=== PATIENT | female | born 1935 | race Caucasian/White ===

== ENCOUNTER 2016-07-16 05:31 | Day surgery (SDC) | payer OTHER ==
[2016-07-15 14:22] LABS: MANUAL DIFF NEEDED? NO
[2016-07-15 15:26] LABS: BASO% 0.4 % (0.0-0.8); EOS# 0.05 X1000 (0.0-0.7); EOS% 0.5 % (0.0-10.0); HEMATOCRIT 40.2 % (37.0-47.0); HEMOGLOBIN 13.1 g/dL (12.0-16.0); IMM GRAN# 0.03 X1000 (0.0-0.04); IMM GRAN% 0.3 % (0.0-0.5); LYMPH# 1.43 X1000 (1.2-3.4); LYMPH% 14.4 % (20.5-51.1); MCH 28.9 PG (27-31); MCHC 32.6 g/dL (33-37); MCV 88.7 FL (81-99); MONO# 1.09 X1000 (0.11-0.59); MPV 9.2 FL (7.4-10.4); NEUT% 73.4 % (42.2-75.2); PLT 334 X1000 (130-400); RBC 4.53 XMIL (4.2-5.4)
--- NOTE | 2016-07-15 21:52 | HISTORY AND PHYSICAL ---
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 We recently began seeing the patient because of recurring symptoms. In October 2015 query of her InterStim noted approximately 20% of battery life remaining. She is subsequently returned now with complaints that her InterStim is no longer working and she is wishing to proceed with replacement of the neuromodulator. The risks and benefits of this were explained at length. She understands and wishes to proceed with surgical intervention. PAST MEDICAL HISTORY: Positive for a ruptured disk in her low back and several other bulging disks, she struggles also with functional bowel disease. PAST SURGICAL HISTORY: Positive for appendectomy, tonsillectomy, submaxillary stone removal, abdominal hysterectomy, multiple exploratory laparotomies, a bilateral salpingo-oophorectomy, a prior permanent InterStim placement. ALLERGIES: Aspirin, sulfur, Demerol, Pro-Banthine, fluoroquinolones and Cinobac. CURRENT MEDICATIONS: Premarin cream, Analpram p.r.n., Lortab 5 p.r.n., levothyroxine 50 mcg, Coreg CR 20, Colace 100, trazodone 50, Singulair 10, Astelin spray, triamcinolone spray 55 mcg per activation, ranitidine b.i.d. and p.r.n. medications. SOCIAL HISTORY: Positive for tobacco but stopped in 1994. No alcohol or drugs. FAMILY HISTORY: Noncontributory. PHYSICAL EXAMINATION: GENERAL: Her BMI is currently 20. HEENT: Normocephalic, atraumatic. PERRLA. EOMI. No thyromegaly. CV: Regular rate and rhythm without murmur, gallop, or rub. PULMONARY: Clear to auscultation, percussion. ABDOMEN: Soft. : Shows atrophic changes. NEUROLOGIC: Afocal. EXTREMITIES: Without clubbing, cyanosis, or edema. ASSESSMENT AND PLAN: Patient is admitted at this time for permanent InterStim placement and possible lead replacement depending upon the impedances of these leads.
[2016-07-16] MEDS ORDERED: LR 1,000 ML ONE ×2 (05:49→09:45)
[2016-07-16] MEDS ORDERED: MARCAINE 0.25% PF/EPI 1:200,000 ONE (06:35)
[2016-07-16] MEDS ORDERED: KEFZOL 1 GM/D5W 50 ML ONE (07:22)
[2016-07-16] MEDS ORDERED: CLAVE SECONDARY SET 11953 ONE (07:22)
[2016-07-16] MEDS ORDERED: DIPRIVAN 1% ONE (07:56)
[2016-07-16] MEDS ORDERED: PHENERGAN PO PRN (08:56)
[2016-07-16] MEDS ORDERED: NORCO-5 PO PRN (08:56)
[2016-07-16] MEDS ORDERED: NORCO-10 PO PRN (08:56)
[2016-07-16 09:18] VITALS: BP 148/82
[2016-07-16] MEDS ORDERED: ZOFRAN ONE (09:45)
[2016-07-16] MEDS ORDERED: QUELICIN (DOSE) ONE (09:45)
[2016-07-16] MEDS ORDERED: XYLOCAINE-MPF 2% ONE (09:45)
--- NOTE | 2016-07-16 10:28 | OPERATIVE NOTE ---
PROCEDURE DATE: 07/16/2016 PREOPERATIVE DIAGNOSIS: End of life neurostimulator. POSTOPERATIVE DIAGNOSIS: End of life neurostimulator. PROCEDURE: Replacement of neurostimulator. SURGEON: Mango Doyle MD ANESTHESIA: General. ESTIMATED BLOOD LOSS: Less than 5 mL. HISTORY: The patient is a 80-year-old female, who we placed a neurostimulator into S3 foramen approximately 5 years ago secondary to unobstructed urinary retention. Over the last 5 years, patient has had excellent results with neurostimulator. She was seen approximately 2 months ago, with 20% battery life noted and then recently presented with the end of life battery and she wished to have it replaced. At the time of our initial evaluation 2 months ago, she had excellent impedance in all leads and today during the testing had the same thing also. OPERATIVE FINDINGS: Neurostimulator noted to be in the left buttock region. No evidence of any infection. It was easily removed. Normal impedance with normal response of the S3 nerve upon testing. OPERATIVE PROCEDURE: The patient was taken to the operating room, placed supine position. After adequate general anesthesia was obtained, she was then placed in the prone position and her buttock and low back region were prepped and draped in the usual fashion. Infiltration with 0.25% Marcaine with epinephrine was performed at our prior surgical site. Sagittal incision was made across the prior surgical incision site and we gently used hemostats and Metzenbaum scissors to dissect the pocket open. We gently lifted the battery out and disconnected the lead from the battery. A new battery was then hooked to the lead and tightened in a typical fashion. The new battery was placed in the pocket. At this time, we then did impedance checked and programming and we had excellent response at low voltages and no impedance. So decision was made to terminate the procedure. Then 0 Vicryl ligature was utilized to close the fascia in deep area of this pocket and then a 4.0 Vicryl ligature was utilized in a subcuticular fashion to reapproximate skin edges. Sponge count, instrument count, and needle counts correct x3. Packs and drains were none. Patient was awakened, taken to the recovery room with vital signs stable.
[2016-07-16] MEDS ORDERED: CATAPRES PO SCH (21:00)
[2016-07-17] MEDS ORDERED: SYNTHROID PO SCH (07:00)
[2016-07-17] MEDS ORDERED: PRILOSEC PO SCH (07:00)
[2016-07-17] MEDS ORDERED: NORVASC PO SCH (09:00)
[2016-07-17] MEDS ORDERED: PRINIVIL PO SCH (09:00)
== END 2016-07-16 09:48 | disposition home or self-care (01) ==
LOC: OR 05:31
PROVIDERS: ATTEND Obstetrics & Gynecology
DX: Z45.42 Encounter for adjustment and management of neurostimulator (principal)
CPT/HCPCS: 85025; C1767; C1787; J0330; J0690; J2405; J7120

== ENCOUNTER 2019-04-02 09:17 | Inpatient (IN) ==
[2019-04-02] MEDS ORDERED: NS 1,000 ML IV ONE (09:27)
[2019-04-02] MEDS ORDERED: MORPHINE IV ONE ×2 (09:54→12:43)
[2019-04-02] MEDS ORDERED: ZOFRAN IV ONE (09:54)
[2019-04-02 10:37] LABS: BASO# 0.02 X1000 (0.0-0.2); BASO% 0.1 % (0.0-0.8); HEMATOCRIT 41.1 % (37.0-47.0); HEMOGLOBIN 13.3 g/dL (12.0-16.0); IMM GRAN# 0.03 X1000 (0.0-0.04); IMM GRAN% 0.2 % (0.0-0.5); LYMPH# 0.53 X1000 (1.2-3.4); LYMPH% 3.9 % (20.5-51.1); MCH 28.3 PG (27-31); MCHC 32.4 g/dL (33-37); MCV 87.4 FL (81-99); MONO# 0.44 X1000 (0.11-0.59); MONO% 3.3 % (1.7-9.3); MPV 8.9 FL (7.4-10.4); NEUT% 92.5 % (42.2-75.2); PLT 397 X1000 (130-400); RDW 13.9 % (11.5-14.5); WBC 13.52 X1000 (4.8-10.8)
[2019-04-02 10:44] LABS: INR 0.99; PROTIME 13.2 Seconds (11.0-16.0); PTT 30.2 Seconds (22.3-41.8)
[2019-04-02 10:54] LABS: ALB/GLOB RATIO 1.8; ALBUMIN 4.9 g/dL (3.5-5.0); CALCIUM 10.1 mg/dL (8.8-10.2); CREATININE 1.7 mg/dL (0.5-0.9); MAGNESIUM 2.1 mg/dL (1.5-2.7); POTASSIUM 5.2 mmol/L (3.5-5.1); TOTAL BILIRUBIN 0.63 mg/dL (0.20-1.00); TOTAL PROTEIN 7.6 g/dL (6.3-8.3)
--- NOTE | 2019-04-02 11:18 | Diag Imaging Result Doc PS360 ---
FLAT/UPRIGHT ABD/1 VIEW CHEST - 04/02/2019 INDICATION: abd pain, history of obstruction TECHNIQUE: COMPARISON: 10/03/2017 FINDINGS: The chest is clear. There is a device at the right side of the pelvis with an electrode in the lower pelvis. There is a nonobstructive bowel gas pattern. No free air or abnormal calcifications. There are surgical clips in the right upper and lower quadrants. No constipation. IMPRESSION: No acute disease. Electronically signed by Javi Talbot 04/02/2019 11:16 AM
[2019-04-02 12:02] LABS: URINE SOURCE CLEAN CATCH
[2019-04-02 12:06] LABS: BILIRUBIN URINE NEGATIVE (NEGATIVE); BLOOD URINE NEGATIVE (NEGATIVE); COLOR YELLOW; GLUCOSE URINE NEGATIVE (NEGATIVE); KETONE URINE NEGATIVE (NEGATIVE); LEUKOCYTES URINE NEGATIVE (NEGATIVE); NITRITE URINE NEGATIVE (NEGATIVE); PH URINE 6.5; PROTEIN URINE TRACE mg/dL (NEGATIVE); SP GRAVITY URINE 1.019; TURBIDITY URINE CLEAR (CLEAR); UR EPITHELIAL CELLS <10 /HPF (<10); URINE BACTERIA NEGATIVE /HPF; URINE RBC <10 /HPF (<10); URINE WBC <10 /HPF (<10); UROBILINOGEN URINE NORMAL (NORMAL)
--- NOTE | 2019-04-02 12:14 | Diag Imaging Result Doc PS360 ---
CT ABDOMEN/PELVIS W/O CONTRAST - 04/02/2019 INDICATION: abd pain, SBO COMPARISON: 07/08/2018 FINDINGS: The lung bases are clear and the heart size is normal. There are cholecystectomy clips. No radiodense renal stones. No hydronephrosis or hydroureter. There is a small stable ventral hernia at the anterior right parasagittal pelvic body wall. This contains a knuckle of small bowel which was the case on the prior CT. There is severe dilation of the small bowel diffusely. There is also fluid throughout the colon but the colon is normal in caliber. There appears to have been previous right hemicolectomy. No intraperitoneal free air or free fluid. Uterus is absent. Urinary bladder and rectum are normal. There are moderate degenerative changes of the spine. No acute or suspicious bony lesion. IMPRESSION: Extensive, severe dilation of all of the small bowel. There is a small herniated loop in a ventral hernia at the right pelvic body wall, that was the case on the prior exam. However there is no distal collapsed bowel to indicate focal mechanical obstruction at this point. The reason for the severe bowel dilation is unclear. This may indicate severe ileus. This exam was performed using automated exposure control, adjustment of mA or kV according to patient size, and/or use of iterative reconstruction technique Electronically signed by Javi Talbot 04/02/2019 12:12 PM
--- NOTE | 2019-04-02 12:40 | PROVIDER DOCUMENTATION ---
This chart was entered by Altagracia Shah Scribe, acting as scribe for Chris Isabel MD. HPI-Abdominal Pain/GI Problem - General Chief Complaint: N/V/D Stated Complaint: VOMITING Time Seen by Provider: 04/02/19 09:26 Source: patient Allergies/Adverse Reactions: Patient Allergies Allergy/AdvReac Type Severity Reaction Status Date / Time aspirin Allergy Severe SWELLING Verified 10/16/18 17:48 meperidine HCl * Allergy Severe "CARDIAC Verified 10/16/18 17:48 [From Demerol] ARREST" Sulfa (Sulfonamide Allergy Severe HIVES Verified 10/16/18 17:48 Antibiotics) [Sulfa(Sulfonamide Antibiotics)] propantheline bromide * Allergy Unknown Unknown Verified 10/16/18 17:48 [From Pro-Banthine] ciprofloxacin [From Cipro] AdvReac Severe Unknown Verified 10/16/18 17:48 ciprofloxacin HCl * AdvReac Intermediate Unknown Verified 10/16/18 17:48 [From Cipro] hydrochlorothiazide AdvReac Mild NAUSEA Verified 10/16/18 17:48 Home Medications: Home Medication List Medication Instructions Recorded Confirmed Last Taken Type Desipramine HCl 10 mg PO QHS 05/21/17 10/16/18 09/29/17 History Hydrocodone/Acetaminophen [[place] 1 each PO Q4-6H PRN PRN 05/21/17 10/16/18 09/29/17 History 5-325 Tablet] Amlodipine [Norvasc] 5 mg PO DAILY 10/01/17 10/16/18 09/30/17 History Hydralazine [Apresoline] 25 mg PO BID 10/01/17 10/16/18 09/27/17 History Levothyroxine Sodium 125 mcg PO DAILY@0700 10/01/17 10/16/18 10/01/17 History Metoprolol Succinate E.r. [Toprol 25 mg PO DAILY 10/01/17 10/16/18 10/01/17 History Xl] Mirtazapine 45 mg PO DAILY 10/01/17 10/16/18 09/27/17 History Clopidogrel Bisulfate [Clopidogrel] 75 mg PO DAILY 04/12/18 10/16/18 Unknown History Nitrofurantoin Macrocrystal 50 mg PO Q12HR #10 cap 10/16/18 Unknown Rx [Macrodantin] Phenazopyridine HCl [Pyridium] 100 mg PO Q8HR #12 tab 10/16/18 Unknown Rx Nitrofurantoin Monohyd/M-Cryst 100 mg PO BID #14 cap 03/22/19 Unknown Rx [Macrobid 100 mg Capsule] Phenazopyridine [Pyridium] 100 mg PO TID #6 tab 03/22/19 Unknown Rx - History of Present Illness-ABD Nature of Presenting Problems: Patient is a 83 year old female who presents with generalized abdominal pain. States fever, nausea and vomiting with pain. Reports symptoms started this morning around 0400. History of small bowel obstructions with colon surgeries. States last bowel movement was last night. Reports was recently treated for an UTI. Abdominal Pain Onset Location: reports: generalized abdomen Pain Radiation: reports: no radiation Quality of Pain: reports: aching Severity in ED: reports: moderate Onset/Duration: reports: this morning (0400) Timing: reports: still present Activities at Onset: reports: light activity Associated Symptoms: reports: fever/chills (fever), nausea, vomiting. denies: constipation, diaphoresis Last BM: last night Bruising or Bleeding Gums?: No Similar Symptoms Previously?: Yes Recently seen or treated by another doctor?: No Review of Systems - Adult - REVIEW OF SYSTEMS - ADULT Constitutional: reports: see HPI, fever. denies: chills, fatique Eyes: reports: no symptoms reported Ears, Nose, Mouth & Throat: reports: no symptoms reported Cardiovascular: reports: no symptoms reported Respiratory: reports: no symptoms reported Gastrointestinal: reports: see HPI, abdominal pain (generalized), nausea, vomiting. denies: diarrhea Genitourinary: reports: no symptoms reported. denies: dysuria, hematuria, urinary retention Musculoskeletal: reports: no symptoms reported Integumentary: reports: no symptoms reported Neurological: reports: no symptoms reported Psychiatric: reports: no symptoms reported Endocrine: reports: no symptoms reported Hematologic/Lymphatic: reports: no symptoms reported Allergic/Immunologic: reports: no symptoms reported All Other Systems: Reviewed and Negative Past History - Adult - PAST MEDICAL HISTORY-ADULT Review of Records: reports: Old Records Reviewed, Nursing Assessment Review, Medications Reviewed, Social history reviewed & non-contributory. Major Childhood Illnesses: reports: denies history Cardiovascular: reports: HTN, hyperlipidemia, [place] Respiratory: reports: denies history Gastrointestinal: reports: other (gastritis) Obstetrical/Gynecological: reports: denies history Genitourinary: reports: denies history Musculoskeletal: reports: denies history Neurological: reports: denies history Endocrine/Immune: reports: thyroid disorder Other Conditions: reports: denies history - PRIOR SURGERIES/PROCEDURES Surgical/Procedure History: reports: appendectomy, cholecystectomy, hysterectomy , bowel surgery (x8) - PRIOR HOSPITALIZATIONS Prior Hospitalizations: reports: for similar symptoms - IMMUNIZATION STATUS Childhood Immunizations: See Nurse Assessment Flu Vaccine: See Nurse Assessment - FAMILY HISTORY Family History: reviewed, not pertinent - SOCIAL HISTORY Smoking: cigarettes (former) Substance Use: alcohol Alcohol Use Frequency: occasionally Physical Exam-General - PHYSICAL EXAM-ADULT Initial Vital Signs Reviewed: Yes - CONSTITUTIONAL General Appearance: alert, mild distress. negative: lethargic - HEAD, EARS, NOSE, MOUTH & THROAT HENMT: normocephalic/atraumatic, other (dry mucous membranes). negative: angioedema - RESPIRATORY Respiratory: chest non-tender, rhonchi (scattered bilaterally.). negative: res piratory distress, increased rate - CARDIOVASCULAR Cardiovascular: normal peripheral pulses, regular rate, rhythm. negative: tachycardia - GASTROINTESTINAL (ABDOMEN) Abdominal Exam: soft, abnormal bowel sounds (hypoactive), tenderness (diffuse). negative: rigid - MUSCULOSKELETAL Extremity: normal inspection. negative: erythema, swelling - SKIN Integumentary: normal color, other (decrease skin turgor). negative: diaphoresis, pallor - NEUROLOGIC Neurologic: grossly normal. negative: aphasia, facial droop - PSYCHIATRIC Psych/Mental Status: normal mood/affect, oriented x 3. negative: anxious Progress - PLAN OF CARE/RESULTS Progress/Plan/Lab Results: Vital Signs - 8 hr 04/02/19 09:36 Temperature 97.9 F Pulse Rate 64 Respiratory Rate 14 Blood Pressure 118/75 O2 Sat by Pulse Oximetry 98 Laboratory Results - last 24 hr 04/02/19 04/02/19 04/02/19 10:18 10:18 10:18 WBC 13.52 H RBC 4.70 Hgb 13.3 Hct 41.1 MCV 87.4 MCH 28.3 MCHC 32.4 L RDW Std Deviation 13.9 Plt Count 397 MPV 8.9 Immature Gran % (Auto) 0.2 Neut % (Auto) 92.5 H Lymph % (Auto) 3.9 L [place] % (Auto) 3.3 Eos % (Auto) 0.0 Baso % (Auto) 0.1 Immature Gran # (Auto) 0.03 Neut # (Auto) 12.50 H Lymph # (Auto) 0.53 L [place] # (Auto) 0.44 Eos # (Auto) 0.00 Baso # (Auto) 0.02 PT 13.2 INR 0.99 PTT (Actin FS) 30.2 Sodium 131 L Potassium 5.2 H Chloride 90 L Carbon Dioxide 26 Anion Gap 15 BUN 20 Creatinine 1.7 H Estimated GFR/1.73 m2 29 BUN/Creatinine Ratio 12 Glucose 128 H Calculated Osmolality 267 Calcium 10.1 Magnesium 2.1 Total Bilirubin 0.63 AST 18 ALT 10 Alkaline Phosphatase 74 Troponin T Total Protein 7.6 Albumin 4.9 Globulin 2.7 Albumin/Globulin Ratio 1.8 Lipase 83 H 04/02/19 10:18 WBC RBC Hgb Hct MCV MCH MCHC RDW Std Deviation Plt Count MPV Immature Gran % (Auto) Neut % (Auto) Lymph % (Auto) [place] % (Auto) Eos % (Auto) Baso % (Auto) Immature Gran # (Auto) Neut # (Auto) Lymph # (Auto) [place] # (Auto) Eos # (Auto) Baso # (Auto) PT INR PTT (Actin FS) Sodium Potassium Chloride Carbon Dioxide Anion Gap BUN Creatinine Estimated GFR/1.73 m2 BUN/Creatinine Ratio Glucose Calculated Osmolality Calcium Magnesium Total Bilirubin AST ALT Alkaline Phosphatase Troponin T < 0.010 Total Protein Albumin Globulin Albumin/Globulin Ratio Lipase Orders Category Date Time Status Nursing- Obtain EKG once Care 04/02/19 09:26 Active Saline Loc NOW Care 04/02/19 09:26 Active NPO Diet 04/02/19 09:[address] ABD/PELVIS W/IV CONT ONLY [CT] Stat Exams 04/02/19 09:52 Ordered FLAT/UPRIGHT ABD/1 VIEW CHEST [RAD] Stat Exams 04/02/19 09:27 Ordered BLOOD CULTURE [BLDCUL] Stat Lab 04/02/19 09:26 Uncollected CBC WITH ELECTRONIC DIFF [HEME] Stat Lab 04/02/19 10:18 Completed COMPREHENSIVE METABOLIC PANEL [CHEM] Stat Lab 04/02/19 10:18 Completed LACTATE, PLASMA [CHEM] Stat Lab 04/02/19 09:27 Uncollected LIPASE [CHEM] Stat Lab 04/02/19 10:18 Completed MAGNESIUM [CHEM] Stat Lab 04/02/19 10:18 Completed PRO B-NATRIURETIC PEPTIDE Stat Lab 04/02/19 10:18 Received PROTIME WITH INR [COAG] Stat Lab 04/02/19 10:18 Completed PTT [COAG] Stat Lab 04/02/19 10:18 Completed TROPONIN T Stat Lab 04/02/19 10:18 Completed TYPE & SCREEN [BBK] Stat Lab 04/02/19 10:18 Received URINALYSIS W/POSS RFLX CULT [URINALYSIS] Stat Lab 04/02/19 09:27 Uncollected 0.9% Sodium Chloride Inj [Ns] 1,000 ml Med 04/02/19 09:27 Discontinued IV 999 mls/hr Morphine Med 04/02/19 09:54 Discontinued 2 mg IV NOW ONE Ondansetron [Zofran] Med 04/02/19 09:54 Discontinued 4 mg IV NOW ONE EKG [EKG] Stat Ther 04/02/19 09:26 Ordered Result Diagrams: 04/02/19 10:18 04/02/19 10:18 - XRAY 1 XRAY Study: Abdomen Impression: Abnormal, See EMR Report ( Signed FLAT/UPRIGHT ABD/1 VIEW CHEST - 04/02/2019 INDICATION: abd pain, history of obstruction TECHNIQUE: COMPARISON: 10/03/2017 FINDINGS: The chest is clear. There is a device at the right side of the pelvis with an electrode in the lower pelvis. There is a nonobstructive bowel gas pattern. No free air or abnormal calcifications. There are surgical clips in the right upper and lower quadrants. No constipation. IMPRESSION: No acute disease. Electronically signed by Javi Talbot 04/02/2019 11:16 AM 04/02/19 1116 Interpreting Physician: Javi Talbot MD Dictated Date/Time: 04/02/19 1115 cc: Chris Isabel MD; None,PCP) - CT/MRI 1 CT Study: Abdomen Impression: Abnormal (CT ABDOMEN/PELVIS W/O CONTRAST - 04/02/2019 INDICATION: abd pain, SBO COMPARISON: 07/08/2018 FINDINGS: The lung bases are clear and the heart size is normal. There are cholecystectomy clips. No radiodense renal stones. No hydronephrosis or hydroureter. There is a small stable ventral hernia at the anterior right parasagittal pelvic body wall. This contains a knuckle of small bowel which was the case on the prior CT. There is severe dilation of the small bowel diffusely. There is also fluid throughout the colon but the colon is normal in caliber. There appears to have been previous right hemicolectomy. No intraperitoneal free air or free fluid. Uterus is absent. Urinary bladder and rectum are normal. There are moderate degenerative changes of the spine. No acute or suspicious bony lesion. IMPRESSION: Extensive, severe dilation of all of the small bowel. There is a small herniated loop in a ventral hernia at t he right pelvic body wall, that was the case on the prior exam. However there is no distal collapsed bowel to indicate focal mechanical obstruction at this point. The reason for the severe bowel dilation is unclear. This may indicate severe ileus. This exam was performed using automated exposure control, adjustment of mA or kV according to patient size, and/or use of iterative reconstruction technique Electronically signed by Javi Talbot 04/02/2019 12:12 PM 04/02/19 1212 Interpreting Physician: Javi Talbot MD Dictated Date/Time: 04/02/19 1209 cc: Chris Isabel MD; None,PCP), See EMR Report - CONSULTS/PCP/HOSPITALIST Notification #1 *Consult/PCP/Hospitalist*: Bhumi Time Discussed: 12:38 Consult Disposition: Will see in ED, Admit Departure - Departure Date of Disposition Decision: 04/02/19 Time of Disposition Decision: 12:38 DIAGNOSIS: Partial small bowel obstruction, Renal insufficiency Disposition: ADMITTED INPATIENT 09 Certified Medical Emergency: Emergent Condition: Stable Referrals and Follow-Ups: None,PCP [Primary Care Provider] - - Critical Care Note This patient required my direct & personal management of CC.: No Attestation - Physician/ BELÉN Attestation Patient care was provided by Advanced Practice Provider:: No The physician spent face to face time with patient:: Yes Advanced Practice Provider documentation review:: Supervising physician onsite and consulted in the evaluation and care of this patient. The physician did have a face to face encounter with the patient. This chart was documented by the indicated scribe, (Altagracia Shah Scribe) and accurately reflects the services I performed and decisions made by me, Chris Isabel MD, as attested by the provider's signature.
--- NOTE | 2019-04-02 12:44 | ED EKG INTERP ---
EKG Interpretation - EKG Time of EKG reading by physician:: 12:44 EKG Read and Signed by:: Chris Isabel EKG Interpretation (*Must complete 3 of following elements*): Abnormal Rate: 60 Rhythm: NSR [place]: normal QRS: Q Waves present (inferiorly), other (early transition) [place] Interval: normal ST Wave: normal Prior EKG Comparison: unchanged from prior Attestation - Physician/ BELÉN Attestation Patient care was provided by Advanced Practice Provider:: No The physician spent face to face time with patient:: Yes Advanced Practice Provider documentation review:: Supervising physician onsite and consulted in the evaluation and care of this patient. The physician did have a face to face encounter with the patient.
--- NOTE | 2019-04-02 13:50 | Diag Imaging Result Doc PS360 ---
EXAM: CHEST/ABD TUBE PLACEMENT HISTORY: NG tube placement TECHNIQUE: Single view COMPARISON: 04/02/2019 11:07 AM FINDINGS: Nasogastric tube is in place. The tip is proximal to the stomach at the GE junction. Side port is within the distal esophagus. Recommend advancing nasogastric approximately 8 cm. The heart size is within normal limits. There are no acute infiltrates. IMPRESSION: Nasogastric tube tip at GE junction with side-port distal esophagus. Recommend advancing nasogastric tube proximally 8 cm. Electronically signed by Autumn Muller 04/02/2019 1:48 PM
--- NOTE | 2019-04-02 14:19 | Diag Imaging Result Doc PS360 ---
CHEST/ABD TUBE PLACEMENT - 04/02/2019 2:10 PM INDICATION: NG tube COMPARISON: 1:12 PM FINDINGS: The nasogastric tube has been advanced and is now fully within the stomach. IMPRESSION: Nasogastric tube in the stomach. Electronically signed by Javi Talbot 04/02/2019 2:17 PM
[2019-04-02] MEDS ORDERED: TYLENOL PO PRN (14:40)
[2019-04-02] MEDS ORDERED: TYLENOL PR PRN (14:43)
--- NOTE | 2019-04-02 14:55 | EKG Report ---
Test Performed on : 04/02/2019 12:40:13 PM Test Reason : abd pain Blood Pressure : / mmHG Vent. Rate : 060 BPM Atrial Rate : 060 BPM P-R Int : 164 ms QRS Dur : 072 ms QT Int : 436 ms P-R-T Axes : 080 -18 068 degrees QTc Int : 436 ms Normal sinus rhythm. Inferior infarct , age undetermined Abnormal ECG When compared with ECG of 02-APR-2019 12:39, (Unconfirmed) Inferior infarct is now present T wave inversion no longer evident in Inferior leads Unconfirmed Result
[2019-04-02] MEDS ORDERED: NORCO-10 PO PRN (18:03)
[2019-04-02] MEDS ORDERED: SODIUM CHLORIDE 0.9% INJ PRN (18:03)
[2019-04-02] MEDS: FLEET ENEMA PR SCH (18:56)
[2019-04-02] MEDS: D5 1/2 NS + KCL 20 MEQ 1,000 ML IV SCH (20:19)
[2019-04-02] MEDS: MORPHINE IV PRN (20:20)
[2019-04-02] MEDS: PHENERGAN IV PRN (20:20)
[2019-04-02] MEDS: SODIUM CHLORIDE 0.9% INJ SCH (20:20)
[2019-04-02] MEDS: PROTONIX IV SCH (20:20)
[2019-04-02] MEDS: DULCOLAX PR SCH ×2 (20:22→20:32)
[2019-04-03] MEDS: FLEET ENEMA PR SCH ×2 (00:35→18:54)
[2019-04-03] MEDS: D5 1/2 NS + KCL 20 MEQ 1,000 ML IV SCH ×3 (02:47→18:53)
--- NOTE | 2019-04-03 07:05 | Diag Imaging Result Doc PS360 ---
ABDOMEN FLAT/UPRIGHT - 04/03/2019 INDICATION: Ileus COMPARISON: 04/02/2019 FINDINGS: There is a nasogastric tube in good position in the stomach. Stable mild gaseous dilation of some of the colon. This appears nonspecific. Overall bowel gas is somewhat decreased. IMPRESSION: Slight improvement from prior. Electronically signed by Javi Talbot 04/03/2019 7:03 AM
[2019-04-03 07:34] LABS: BASO# 0.03 X1000 (0.0-0.2); BASO% 0.3 % (0.0-0.8); EOS# 0.07 X1000 (0.0-0.7); EOS% 0.7 % (0.0-10.0); HEMATOCRIT 37.1 % (37.0-47.0); HEMOGLOBIN 11.6 g/dL (12.0-16.0); IMM GRAN# 0.03 X1000 (0.0-0.04); IMM GRAN% 0.3 % (0.0-0.5); LYMPH# 1.13 X1000 (1.2-3.4); LYMPH% 12.1 % (20.5-51.1); MCH 28.6 PG (27-31); MCHC 31.3 g/dL (33-37); MCV 91.6 FL (81-99); MONO# 0.93 X1000 (0.11-0.59); MONO% 9.9 % (1.7-9.3); MPV 9.1 FL (7.4-10.4); NEUT# 7.18 X1000 (1.4-6.5); NEUT% 76.7 % (42.2-75.2); PLT 291 X1000 (130-400); RBC 4.05 XMIL (4.2-5.4); RDW 14.1 % (11.5-14.5); WBC 9.37 X1000 (4.8-10.8)
[2019-04-03 08:07] LABS: CALCIUM 8.5 mg/dL (8.8-10.2); CREATININE 1.3 mg/dL (0.5-0.9); POTASSIUM 5.1 mmol/L (3.5-5.1)
[2019-04-03] MEDS: MORPHINE IV PRN ×4 (08:46→20:29)
[2019-04-03] MEDS: PROTONIX IV SCH (15:28)
[2019-04-03] MEDS: SODIUM CHLORIDE 0.9% INJ SCH (15:29)
[2019-04-03] MEDS: PHENERGAN IV PRN (16:29)
[2019-04-03] MEDS: DULCOLAX PR SCH (18:53)
[2019-04-03] MEDS: ZOFRAN IV PRN (20:28)
[2019-04-04] MEDS: MORPHINE IV PRN ×4 (01:07→15:50)
[2019-04-04] MEDS: PHENERGAN IV PRN (01:07)
[2019-04-04] MEDS: FLEET ENEMA PR SCH ×3 (01:11→22:20)
[2019-04-04] MEDS: DULCOLAX PR SCH ×3 (01:11→22:20)
[2019-04-04] MEDS: D5 1/2 NS + KCL 20 MEQ 1,000 ML IV SCH ×3 (03:22→18:38)
[2019-04-04 06:56] LABS: BASO# 0.02 X1000 (0.0-0.2); BASO% 0.2 % (0.0-0.8); EOS% 1.1 % (0.0-10.0); HEMATOCRIT 36.1 % (37.0-47.0); HEMOGLOBIN 11.1 g/dL (12.0-16.0); IMM GRAN# 0.04 X1000 (0.0-0.04); IMM GRAN% 0.4 % (0.0-0.5); LYMPH# 0.98 X1000 (1.2-3.4); LYMPH% 10.9 % (20.5-51.1); MCH 27.9 PG (27-31); MCHC 30.7 g/dL (33-37); MCV 90.7 FL (81-99); MONO# 0.88 X1000 (0.11-0.59); MONO% 9.8 % (1.7-9.3); MPV 8.7 FL (7.4-10.4); NEUT# 6.93 X1000 (1.4-6.5); NEUT% 77.6 % (42.2-75.2); PLT 333 X1000 (130-400); RBC 3.98 XMIL (4.2-5.4); RDW 13.6 % (11.5-14.5); WBC 8.95 X1000 (4.8-10.8)
[2019-04-04 07:28] LABS: CALCIUM 8.1 mg/dL (8.8-10.2); CREATININE 1.2 mg/dL (0.5-0.9); POTASSIUM 4.9 mmol/L (3.5-5.1)
--- NOTE | 2019-04-04 08:34 | Diag Imaging Result Doc PS360 ---
FLAT/UPRIGHT ABD/1 VIEW CHEST - 04/04/2019 INDICATION: partial sbo TECHNIQUE: COMPARISON: 04/03/2019 FINDINGS: There is a nasogastric tube in good position. The chest remains clear. There is a nonobstructive bowel gas pattern. There is some rectal gas. No free air or abnormal calcifications. IMPRESSION: No acute disease. Electronically signed by Javi Talbot 04/04/2019 8:31 AM
--- NOTE | 2019-04-04 10:44 | PROGRESS NOTE ---
DATE: 04/04/2019 SUBJECTIVE: The patient has improved. Her nasogastric tube has been removed today. She will start on a liquid diet and ideally be able to be discharged within the next 24 hours. cc: Samm Tejada MD
[2019-04-04] MEDS: PROTONIX IV SCH (15:50)
[2019-04-04] MEDS: ZOFRAN IV PRN (15:50)
[2019-04-04] MEDS: SODIUM CHLORIDE 0.9% INJ SCH (15:50)
[2019-04-05 07:57] VITALS: BP 159/75
--- NOTE | 2019-04-08 06:27 | DISCHARGE SUMMARY ---
ADMISSION DATE: 04/02/2019 DISCHARGE DATE: 04/05/2019 DIAGNOSIS: Partial bowel obstruction with conservative therapy. The patient is an 83-year-old frail white female known to me for many years with a history of multiple operations. She was admitted through the emergency room with nausea and abdominal pain. Flat and upright and CT scan revealed a partial obstruction with no free air. She was admitted, hydrated and nasogastric tube was placed and she did improve during her hospitalization. At the time of discharge, she was tolerating solid food and she will be seen back in the office in 1-2 weeks' time. cc: Samm Tejada MD
== END 2019-04-05 11:10 | disposition home or self-care (01) | DRG 390 ==
LOC: ED 09:17 → 4N 14:15
PROVIDERS: ADMIT Surgery; ATTEND Surgery

== ENCOUNTER 2019-08-09 14:29 | Inpatient (IN) ==
[2019-08-09] MEDS ORDERED: SALINE LOCK IV FLUID XX ONE (15:27)
--- NOTE | 2019-08-09 15:56 | Diag Imaging Result Doc PS360 ---
EXAM: FLAT/UPRIGHT ABD/1 VIEW CHEST 08/09/2019 HISTORY: abd pain TECHNIQUE: Flat and upright abdomen with AP chest COMMENT: There is some gas and stool in the colon. The stomach and small bowel are not distended. There is no evidence of organomegaly or mass. There has been cholecystectomy. The appearance the chest has not changed significantly since 04/04/2019. IMPRESSION: No evidence of acute disease. Electronically signed by Krzysztof Cordero 08/09/2019 3:53 PM
[2019-08-09] MEDS: ZOFRAN IV PRN ×2 (16:13→21:29)
[2019-08-09 16:47] LABS: BASO# 0.03 X1000 (0.0-0.2); BASO% 0.2 % (0.0-0.8); HEMATOCRIT 44.8 % (37.0-47.0); HEMOGLOBIN 14.6 g/dL (12.0-16.0); IMM GRAN# 0.03 X1000 (0.0-0.04); IMM GRAN% 0.2 % (0.0-0.5); LYMPH# 0.72 X1000 (1.2-3.4); LYMPH% 4.7 % (20.5-51.1); MCH 28.2 PG (27-31); MCHC 32.6 g/dL (33-37); MCV 86.7 FL (81-99); MONO# 0.69 X1000 (0.11-0.59); MONO% 4.5 % (1.7-9.3); MPV 8.9 FL (7.4-10.4); NEUT# 14.01 X1000 (1.4-6.5); NEUT% 90.4 % (42.2-75.2); PLT 368 X1000 (130-400); RBC 5.17 XMIL (4.2-5.4); RDW 14.4 % (11.5-14.5); WBC 15.48 X1000 (4.8-10.8)
[2019-08-09 17:04] LABS: LYMPHS 6 % (21-51); MONO 2 % (1-9); SEGS 92 % (42-75)
[2019-08-09 17:05] LABS: HYPOCHROM 1+
[2019-08-09 17:37] LABS: ALB/GLOB RATIO 1.5; ALBUMIN 4.8 g/dL (3.5-5.0); CALCIUM 10.2 mg/dL (8.8-10.2); CREATININE 1.5 mg/dL (0.5-0.9); POTASSIUM 6.2 mmol/L (3.5-5.1); TOTAL BILIRUBIN 0.7 mg/dL (0.20-1.00); TOTAL PROTEIN 7.9 g/dL (6.3-8.3)
[2019-08-09] MEDS: MORPHINE IV PRN ×2 (17:40→21:28)
[2019-08-09] MEDS: D5 1/2 NS 1,000 ML IV SCH (17:45)
[2019-08-09] MEDS: KEFZOL 1 GM/D5W 1 GM/50 ML IVPB IV SCH (18:10)
[2019-08-10] MEDS: MORPHINE IV PRN ×5 (02:31→22:52)
[2019-08-10] MEDS: ZOFRAN IV PRN ×3 (02:31→22:52)
[2019-08-10] MEDS: KEFZOL 1 GM/D5W 1 GM/50 ML IVPB IV SCH ×3 (02:31→17:11)
[2019-08-10] MEDS: D5 1/2 NS 1,000 ML IV SCH ×3 (02:31→15:12)
[2019-08-10 05:26] LABS: HEMATOCRIT 38.8 % (37.0-47.0); HEMOGLOBIN 12.7 g/dL (12.0-16.0); MCH 28.9 PG (27-31); MCHC 32.7 g/dL (33-37); MCV 88.2 FL (81-99); MPV 8.7 FL (7.4-10.4); RBC 4.4 XMIL (4.2-5.4); RDW 14.4 % (11.5-14.5); WBC 12.82 X1000 (4.8-10.8)
[2019-08-10 05:52] LABS: CALCIUM 8.7 mg/dL (8.8-10.2); CREATININE 1.7 mg/dL (0.5-0.9); POTASSIUM 4.8 mmol/L (3.5-5.1)
--- NOTE | 2019-08-10 09:31 | Diag Imaging Result Doc PS360 ---
US RENAL 2 (RETROPER) COMPLETE - 08/10/2019 INDICATION: ABD PAIN/ R/O SBO RENAL FAILURE TECHNIQUE: COMPARISON: CT from 04/02/2019 FINDINGS: The kidneys and urinary bladder are normal. The right kidney measures 9.2 x 4.5 x 3.2 cm. The left kidney measures 9.6 x 4.3 x 4.3 cm. No hydronephrosis, mass, or cyst. IMPRESSION: Negative exam. Electronically signed by Javi Talbot 08/10/2019 9:29 AM
[2019-08-10 10:15] LABS: URINE SOURCE CLEAN CATCH
[2019-08-10 10:20] LABS: BILIRUBIN URINE NEGATIVE (NEGATIVE); BLOOD URINE NEGATIVE (NEGATIVE); COLOR YELLOW; GLUCOSE URINE NEGATIVE (NEGATIVE); KETONE URINE NEGATIVE (NEGATIVE); LEUKOCYTES URINE NEGATIVE (NEGATIVE); NITRITE URINE NEGATIVE (NEGATIVE); PROTEIN URINE TRACE mg/dL (NEGATIVE); SP GRAVITY URINE 1.022; TURBIDITY URINE CLEAR (CLEAR); UROBILINOGEN URINE NORMAL (NORMAL)
[2019-08-10 10:24] LABS: UR EPITHELIAL CELLS <10 /HPF (<10); URINE BACTERIA NEGATIVE /HPF; URINE RBC <10 /HPF (<10); URINE WBC <10 /HPF (<10)
[2019-08-10 11:05] LABS: URINE CRYSTALS NONE SEEN
[2019-08-11] MEDS: KEFZOL 1 GM/D5W 1 GM/50 ML IVPB IV SCH ×3 (01:54→22:25)
[2019-08-11] MEDS: D5 1/2 NS 1,000 ML IV SCH ×2 (01:54→13:53)
[2019-08-11 06:55] LABS: BASO# 0.02 X1000 (0.0-0.2); BASO% 0.2 % (0.0-0.8); EOS# 0.06 X1000 (0.0-0.7); EOS% 0.6 % (0.0-10.0); HEMATOCRIT 38.1 % (37.0-47.0); HEMOGLOBIN 11.8 g/dL (12.0-16.0); IMM GRAN# 0.03 X1000 (0.0-0.04); IMM GRAN% 0.3 % (0.0-0.5); LYMPH# 1.12 X1000 (1.2-3.4); LYMPH% 11.3 % (20.5-51.1); MCH 28.2 PG (27-31); MCV 91.1 FL (81-99); MONO# 1.07 X1000 (0.11-0.59); MONO% 10.8 % (1.7-9.3); NEUT# 7.58 X1000 (1.4-6.5); NEUT% 76.8 % (42.2-75.2); PLT 288 X1000 (130-400); RBC 4.18 XMIL (4.2-5.4); RDW 14.5 % (11.5-14.5); WBC 9.88 X1000 (4.8-10.8)
[2019-08-11 07:18] LABS: CALCIUM 8.2 mg/dL (8.8-10.2); CREATININE 1.5 mg/dL (0.5-0.9); POTASSIUM 4.9 mmol/L (3.5-5.1)
[2019-08-11] MEDS ORDERED: ASTELIN NASAL SPRAY NAS PRN (08:52)
[2019-08-11] MEDS ORDERED: ZYRTEC PO PRN (08:52)
[2019-08-11] MEDS ORDERED: IMODIUM PO PRN (08:53)
[2019-08-11] MEDS ORDERED: TEARISOL OPH SOLUTION OPH PRN (09:20)
[2019-08-11] MEDS: MORPHINE IV PRN ×4 (09:33→22:41)
[2019-08-11] MEDS: ZOFRAN IV PRN (09:46)
[2019-08-11] MEDS: PLAVIX PO SCH (12:30)
[2019-08-11] MEDS: TOPROL XL PO SCH (12:30)
[2019-08-11] MEDS: ALDACTONE PO SCH (12:30)
[2019-08-11] MEDS: NORCO-5 PO SCH (12:30)
[2019-08-11] MEDS: LASIX PO SCH (12:30)
[2019-08-11] MEDS: ZOFRAN PO PRN (18:18)
[2019-08-11] MEDS: PHENERGAN IV PRN (22:23)
[2019-08-11] MEDS: SODIUM CHLORIDE 0.9% INJ PRN (22:23)
[2019-08-11] MEDS: REMERON PO SCH (22:25)
[2019-08-12] MEDS: PHENERGAN IV PRN ×2 (03:38→13:34)
[2019-08-12] MEDS: SODIUM CHLORIDE 0.9% INJ PRN (03:38)
[2019-08-12] MEDS: MORPHINE IV PRN ×3 (03:38→22:05)
[2019-08-12] MEDS: D5 1/2 NS 1,000 ML IV SCH ×4 (05:01→22:02)
[2019-08-12 06:21] LABS: BASO# 0.02 X1000 (0.0-0.2); BASO% 0.2 % (0.0-0.8); EOS# 0.09 X1000 (0.0-0.7); EOS% 0.9 % (0.0-10.0); HEMATOCRIT 37.4 % (37.0-47.0); HEMOGLOBIN 11.8 g/dL (12.0-16.0); LYMPH# 0.82 X1000 (1.2-3.4); LYMPH% 8.6 % (20.5-51.1); MCH 28.6 PG (27-31); MCHC 31.6 g/dL (33-37); MCV 90.6 FL (81-99); MONO# 1.56 X1000 (0.11-0.59); MONO% 16.4 % (1.7-9.3); MPV 9.1 FL (7.4-10.4); NEUT# 7.05 X1000 (1.4-6.5); NEUT% 73.9 % (42.2-75.2); PLT 245 X1000 (130-400); RBC 4.13 XMIL (4.2-5.4); RDW 14.4 % (11.5-14.5); WBC 9.54 X1000 (4.8-10.8)
[2019-08-12] MEDS: KEFZOL 1 GM/D5W 1 GM/50 ML IVPB IV SCH ×3 (06:40→22:06)
[2019-08-12] MEDS: SYNTHROID PO SCH (06:41)
[2019-08-12 06:56] LABS: CALCIUM 8.1 mg/dL (8.8-10.2); CREATININE 1.4 mg/dL (0.5-0.9); POTASSIUM 4.7 mmol/L (3.5-5.1)
--- NOTE | 2019-08-12 08:58 | Diag Imaging Result Doc PS360 ---
EXAM: FLAT/UPRIGHT ABD/1 VIEW CHEST 08/12/2019 HISTORY: partial sbo TECHNIQUE: Flat and upright abdomen with PA chest COMMENT: There is stool and gas in the rectum. There is colonic and small bowel gas throughout the mid abdomen. The stomach is not distended. There are surgical clips in the right upper quadrant. Compared to 08/09/2019 there is a generalized increase in bowel gas including in the rectosigmoid colon. The appearance the chest has not changed significantly. IMPRESSION: Ileus versus partial small bowel obstruction. Electronically signed by Krzysztof Cordero 08/12/2019 8:55 AM
[2019-08-12] MEDS ORDERED: DULCOLAX PR ONE (09:04)
[2019-08-12] MEDS: COZAAR PO SCH (09:17)
[2019-08-12] MEDS: TOPROL XL PO SCH (09:17)
[2019-08-12] MEDS: NORCO-5 PO SCH (09:17)
[2019-08-12] MEDS: PLAVIX PO SCH (09:18)
[2019-08-12] MEDS: LASIX PO SCH (09:18)
[2019-08-12] MEDS: ALDACTONE PO SCH (09:18)
[2019-08-12] MEDS ORDERED: FLEET ENEMA PR ONE (13:00)
[2019-08-12] MEDS: REMERON PO SCH (22:02)
[2019-08-13] MEDS: SYNTHROID PO SCH (06:40)
[2019-08-13] MEDS: KEFZOL 1 GM/D5W 1 GM/50 ML IVPB IV SCH ×3 (06:40→21:28)
[2019-08-13] MEDS: D5 1/2 NS 1,000 ML IV SCH ×3 (06:48→21:29)
[2019-08-13] MEDS: SODIUM CHLORIDE 0.9% INJ PRN ×3 (08:30→21:26)
[2019-08-13] MEDS: PHENERGAN IV PRN ×3 (08:30→21:26)
[2019-08-13] MEDS: MORPHINE IV PRN ×3 (08:31→21:26)
[2019-08-13] MEDS: ALDACTONE PO SCH (08:32)
[2019-08-13] MEDS: PLAVIX PO SCH (08:32)
[2019-08-13] MEDS: TOPROL XL PO SCH (08:33)
[2019-08-13] MEDS: COZAAR PO SCH (08:33)
[2019-08-13] MEDS: LASIX PO SCH (08:33)
[2019-08-13] MEDS: NORCO-5 PO SCH (11:04)
[2019-08-13] MEDS: FLONASE NAS PRN (11:06)
[2019-08-13] MEDS: REMERON PO SCH (21:27)
[2019-08-14] MEDS: SYNTHROID PO SCH (05:59)
[2019-08-14] MEDS: KEFZOL 1 GM/D5W 1 GM/50 ML IVPB IV SCH (05:59)
[2019-08-14] MEDS: MORPHINE IV PRN ×3 (05:59→20:54)
[2019-08-14] MEDS: PHENERGAN IV PRN ×3 (06:11→20:54)
[2019-08-14] MEDS: SODIUM CHLORIDE 0.9% INJ PRN ×3 (06:11→20:54)
[2019-08-14] MEDS: TOPROL XL PO SCH (09:45)
[2019-08-14] MEDS: PLAVIX PO SCH (09:45)
[2019-08-14] MEDS: LASIX PO SCH (09:45)
[2019-08-14] MEDS: COZAAR PO SCH (09:45)
[2019-08-14] MEDS: NORCO-5 PO SCH ×2 (09:45→13:50)
[2019-08-14] MEDS: ALDACTONE PO SCH (09:46)
[2019-08-14] MEDS ORDERED: D5 1/2 NS 1,000 ML IV SCH (13:00)
[2019-08-14] MEDS: REMERON PO SCH (20:48)
[2019-08-15] MEDS: SYNTHROID PO SCH (06:32)
[2019-08-15 06:41] LABS: BASO# 0.04 X1000 (0.0-0.2); BASO% 0.6 % (0.0-0.8); EOS# 0.18 X1000 (0.0-0.7); EOS% 2.7 % (0.0-10.0); HEMATOCRIT 37.6 % (37.0-47.0); HEMOGLOBIN 11.8 g/dL (12.0-16.0); IMM GRAN# 0.03 X1000 (0.0-0.04); IMM GRAN% 0.4 % (0.0-0.5); LYMPH# 1.33 X1000 (1.2-3.4); LYMPH% 19.7 % (20.5-51.1); MCH 28.4 PG (27-31); MCHC 31.4 g/dL (33-37); MCV 90.4 FL (81-99); MONO# 0.88 X1000 (0.11-0.59); MPV 8.9 FL (7.4-10.4); NEUT# 4.29 X1000 (1.4-6.5); NEUT% 63.6 % (42.2-75.2); PLT 286 X1000 (130-400); RBC 4.16 XMIL (4.2-5.4); WBC 6.75 X1000 (4.8-10.8)
[2019-08-15] MEDS: ZOFRAN PO PRN (06:41)
[2019-08-15] MEDS: MORPHINE IV PRN (06:41)
[2019-08-15 07:29] LABS: CALCIUM 8.2 mg/dL (8.8-10.2); CREATININE 1.3 mg/dL (0.5-0.9); POTASSIUM 4.1 mmol/L (3.5-5.1)
--- NOTE | 2019-08-15 07:55 | Diag Imaging Result Doc PS360 ---
EXAM: FLAT/UPRIGHT ABD/1 VIEW CHEST INDICATION: abdominal pain TECHNIQUE: 3 views COMPARISON: 08/12/2019 FINDINGS: Air-fluid levels throughout the abdomen that are mainly in the colon but also in small bowel are again identified. There appears to have been marginal improvement as compared to the previous study. There is no evidence of large volume free abdominal gas. The abdomen is essentially stable, otherwise. The lungs remain grossly clear. No new consolidation is identified cardiac silhouette is stable. IMPRESSION: Marginal improvement of air-fluid levels and distention throughout the abdomen. Electronically signed by Richar Rutledge 08/15/2019 7:52 AM
[2019-08-15] MEDS: ALDACTONE PO SCH (09:20)
[2019-08-15] MEDS: PLAVIX PO SCH (09:20)
[2019-08-15] MEDS: FLONASE NAS PRN (09:20)
[2019-08-15] MEDS: COZAAR PO SCH (09:21)
[2019-08-15] MEDS: TOPROL XL PO SCH (09:21)
[2019-08-15] MEDS: LASIX PO SCH (09:22)
[2019-08-15] MEDS: NORCO-5 PO SCH (09:22)
[2019-08-15 11:51] VITALS: BP 106/67
--- NOTE | 2019-08-22 10:28 | DISCHARGE SUMMARY ---
ADMISSION DATE: 08/09/2019 DISCHARGE DATE: 08/15/2019 DIAGNOSIS: Partial small-bowel obstruction with nausea and vomiting, intractable. PROCEDURE: Conservative therapy. HISTORY OF PRESENT ILLNESS: The patient is an 83-year-old, frail white female known to me for many years. She has had multiple operations. She has a history of a right colectomy with revision, bowel obstruction operations, cholecystectomy. She has an InterStim that is presently not working. She has a history of heart failure, myocardial infarction, diverticulitis and she is admitted with intractable nausea, vomiting and abdominal pain. She improved initially with IV hydration, but had only minimal oral input. She did not want to have any endoscopy at this time or feeding tube. Eventually, she did improve. Her bowels moved. KUB showed slow improvement and as well as flat and upright. No CTs were performed. Ultrasound of the kidneys revealed normal kidneys with no obstruction, in spite of her borderline chronic renal failure. She has slowly improved and was tolerating solid food at the time of discharge. She will be seen in the office in 1 to 2 weeks' time. cc: Samm Tejada MD
== END 2019-08-15 12:11 | disposition home or self-care (01) | DRG 390 ==
LOC: DIRADM → EDIPHOLD 14:29 → 4N 17:15
PROVIDERS: ADMIT Surgery; ATTEND Surgery

== ENCOUNTER 2019-08-24 04:10 | Inpatient (IN) ==
--- NOTE | 2019-08-24 04:49 | EKG Report ---
Test Performed on : 08/24/2019 04:35:45 AM Test Reason : intractable n/v Blood Pressure : / mmHG Vent. Rate : 071 BPM Atrial Rate : 071 BPM P-R Int : 162 ms QRS Dur : 072 ms QT Int : 398 ms P-R-T Axes : 072 -27 073 degrees QTc Int : 432 ms Sinus rhythm. with premature atrial complexes. Otherwise normal ECG When compared with ECG of 02-APR-2019 12:40, premature atrial complexes. are now present Confirmed by Abiodun BRANTLEY, Saji Morrell ([id number]) on 08/24/2019 9:41:12 AM
[2019-08-24] MEDS: MORPHINE IV PRN ×5 (04:55→20:23)
[2019-08-24] MEDS: D5 1/2 NS + KCL 20 MEQ 1,000 ML IV SCH ×2 (04:55→14:42)
[2019-08-24 05:09] LABS: HEMATOCRIT 43.9 % (37.0-47.0); HEMOGLOBIN 14.1 g/dL (12.0-16.0); MCH 28.6 PG (27-31); MCHC 32.1 g/dL (33-37); MPV 8.9 FL (7.4-10.4); RBC 4.93 XMIL (4.2-5.4); RDW 14.4 % (11.5-14.5); WBC 16.52 X1000 (4.8-10.8)
[2019-08-24 05:28] LABS: ALB/GLOB RATIO 1.3; ALBUMIN 4.2 g/dL (3.5-5.0); CALCIUM 9.4 mg/dL (8.8-10.2); CREATININE 1.4 mg/dL (0.5-0.9); POTASSIUM 3.9 mmol/L (3.5-5.1); TOTAL BILIRUBIN 0.54 mg/dL (0.20-1.00); TOTAL PROTEIN 7.4 g/dL (6.3-8.3)
--- NOTE | 2019-08-24 07:05 | Diag Imaging Result Doc PS360 ---
EXAM: KUB ABDOMEN INDICATION: nausea/vomiting TECHNIQUE: One view COMPARISON: 08/15/2019 FINDINGS: There has been a decrease in the amount of colonic distention since the previous study. However, there are a few loops of small bowel in the lower abdomen containing air with only mild distention. They are nonspecific. No large volume free abdominal gas appreciated. The abdomen is essentially stable, otherwise. IMPRESSION: Nonspecific mild gaseous distention of a few loops of small bowel in the lower abdomen. Electronically signed by Richar Rutledge 08/24/2019 7:03 AM
[2019-08-24] MEDS: PHENERGAN IV PRN ×4 (07:57→20:22)
[2019-08-24] MEDS: SODIUM CHLORIDE 0.9% INJ PRN ×4 (07:58→20:27)
[2019-08-24] MEDS: KEFZOL 1 GM/D5W 1 GM/50 ML IVPB IV SCH ×3 (08:04→23:18)
[2019-08-24 14:20] LABS: URINE SOURCE CLEAN CATCH
[2019-08-24 14:31] LABS: BILIRUBIN URINE NEGATIVE (NEGATIVE); BLOOD URINE NEGATIVE (NEGATIVE); COLOR YELLOW; GLUCOSE URINE NEGATIVE (NEGATIVE); KETONE URINE NEGATIVE (NEGATIVE); LEUKOCYTES URINE SMALL (NEGATIVE); NITRITE URINE NEGATIVE (NEGATIVE); PH URINE 6.5; PROTEIN URINE TRACE mg/dL (NEGATIVE); SP GRAVITY URINE 1.019; TURBIDITY URINE CLEAR (CLEAR); UROBILINOGEN URINE NORMAL (NORMAL)
[2019-08-24 14:36] LABS: UR EPITHELIAL CELLS <10 /HPF (<10); URINE BACTERIA NEGATIVE /HPF; URINE WBC <10 /HPF (<10)
[2019-08-25] MEDS: MORPHINE IV PRN ×5 (01:29→22:58)
[2019-08-25] MEDS: PHENERGAN IV PRN ×4 (01:30→18:56)
[2019-08-25] MEDS: D5 1/2 NS + KCL 20 MEQ 1,000 ML IV SCH ×3 (03:55→12:58)
[2019-08-25] MEDS: KEFZOL 1 GM/D5W 1 GM/50 ML IVPB IV SCH ×3 (09:05→22:58)
[2019-08-25] MEDS: SODIUM CHLORIDE 0.9% INJ PRN ×2 (12:38→18:56)
--- NOTE | 2019-08-25 12:38 | Diag Imaging Result Doc PS360 ---
EXAM: GI/SW/SM BOWEL INDICATION: sbo? TECHNIQUE: Oral Gastrografin contrast was administered and the bolus was followed under fluoroscopy. Spot images were obtained. COMPARISON: None. FINDINGS: There is an extrinsic filling defect at the posterior aspect of the upper esophagus indicating cricopharyngeus spasm. Otherwise, the esophagus is grossly normal in course, caliber, and contour. No discrete stricture is identified. A small hiatal hernia is noted. No definite gastric filling defect or ulceration is identified. Barium passes readily through the pylorus and into the small bowel. The duodenum is nondistended. There are mildly distended loops of jejunum throughout the abdomen. No focal stricture is identified. There is at least no evidence of a high-grade obstruction. Contrast is seen in the rectum after four hours. IMPRESSION: 1.Several mildly distended loops of small bowel throughout the abdomen. However, contrast is seen in the rectum after four hours indicating that there is no high-grade obstruction. 2.Small hiatal hernia. 3.Incidental cricopharyngeus spasm. Electronically signed by Richar Rutledge 08/25/2019 12:35 PM
[2019-08-25] MEDS ORDERED: FLEET ENEMA PR ONE (21:00)
[2019-08-26] MEDS: D5 1/2 NS + KCL 20 MEQ 1,000 ML IV SCH ×4 (00:01→19:11)
[2019-08-26] MEDS: PHENERGAN IV PRN ×5 (00:01→21:09)
[2019-08-26] MEDS: KEFZOL 1 GM/D5W 1 GM/50 ML IVPB IV SCH ×4 (04:34→23:21)
[2019-08-26] MEDS: MORPHINE IV PRN ×5 (04:58→21:09)
[2019-08-26 07:11] LABS: BASO# 0.02 X1000 (0.0-0.2); BASO% 0.2 % (0.0-0.8); EOS# 0.01 X1000 (0.0-0.7); EOS% 0.1 % (0.0-10.0); HEMATOCRIT 43.5 % (37.0-47.0); HEMOGLOBIN 13.5 g/dL (12.0-16.0); IMM GRAN# 0.02 X1000 (0.0-0.04); IMM GRAN% 0.2 % (0.0-0.5); LYMPH# 0.57 X1000 (1.2-3.4); LYMPH% 5.9 % (20.5-51.1); MCV 90.2 FL (81-99); MONO# 0.68 X1000 (0.11-0.59); MONO% 7.1 % (1.7-9.3); MPV 9.4 FL (7.4-10.4); NEUT# 8.28 X1000 (1.4-6.5); NEUT% 86.5 % (42.2-75.2); PLT 360 X1000 (130-400); RBC 4.82 XMIL (4.2-5.4); RDW 14.1 % (11.5-14.5); WBC 9.58 X1000 (4.8-10.8)
[2019-08-26 07:24] LABS: CREATININE 1.2 mg/dL (0.5-0.9); POTASSIUM 4.7 mmol/L (3.5-5.1)
[2019-08-26 07:28] LABS: LYMPHS 5 % (21-51); SEGS 95 % (42-75)
--- NOTE | 2019-08-26 08:00 | Diag Imaging Result Doc PS360 ---
EXAM: ABDOMEN FLAT/UPRIGHT 08/26/2019 HISTORY: INTRACTABLE VOMITING TECHNIQUE: Flat and upright abdomen COMMENT: There is some apparent oral contrast in the distal colon. Most of the contrast on the previous small bowel series of 08/25/2019 has been passed since yesterday. There is gaseous dilatation of multiple small bowel loops. The stomach is not distended. There is no evidence of organomegaly or mass. IMPRESSION: Partial small bowel obstruction versus ileus. Electronically signed by Krzysztof Cordero 08/26/2019 7:58 AM
[2019-08-26] MEDS: SODIUM CHLORIDE 0.9% INJ PRN ×2 (09:25→13:56)
[2019-08-26] MEDS ORDERED: ZYRTEC PO PRN (16:17)
[2019-08-26] MEDS: COZAAR PO SCH (17:11)
[2019-08-26] MEDS: TOPROL XL PO SCH (17:11)
[2019-08-26] MEDS ORDERED: COZAAR PO ONE (17:15)
[2019-08-26] MEDS: REMERON PO SCH (21:10)
[2019-08-27] MEDS: ZOFRAN PO PRN (01:39)
[2019-08-27] MEDS: MORPHINE IV PRN ×4 (01:39→20:58)
[2019-08-27] MEDS: PHENERGAN IV PRN ×4 (04:08→20:58)
[2019-08-27] MEDS: D5 1/2 NS + KCL 20 MEQ 1,000 ML IV SCH ×4 (05:01→22:57)
[2019-08-27] MEDS: SYNTHROID PO SCH (06:19)
[2019-08-27] MEDS: KEFZOL 1 GM/D5W 1 GM/50 ML IVPB IV SCH ×3 (08:52→23:00)
[2019-08-27] MEDS: ASTELIN NASAL SPRAY NAS SCH (08:53)
[2019-08-27] MEDS: FLONASE NAS SCH (08:53)
[2019-08-27] MEDS: LASIX PO SCH (08:54)
[2019-08-27] MEDS: PLAVIX PO SCH (08:54)
[2019-08-27] MEDS: COZAAR PO SCH (08:54)
[2019-08-27] MEDS: TOPROL XL PO SCH (08:54)
[2019-08-27] MEDS: ALDACTONE PO SCH (08:55)
[2019-08-27] MEDS: SODIUM CHLORIDE 0.9% INJ PRN ×3 (08:55→20:58)
[2019-08-27] MEDS: REMERON PO SCH (20:58)
[2019-08-28] MEDS: MORPHINE IV PRN ×4 (09:16→22:07)
[2019-08-28] MEDS: SODIUM CHLORIDE 0.9% INJ PRN ×4 (09:16→22:08)
[2019-08-28] MEDS: PHENERGAN IV PRN ×4 (09:16→22:07)
[2019-08-28] MEDS: D5 1/2 NS + KCL 20 MEQ 1,000 ML IV SCH ×2 (09:26→20:36)
[2019-08-28] MEDS: SYNTHROID PO SCH (09:28)
[2019-08-28] MEDS: TOPROL XL PO SCH (09:29)
[2019-08-28] MEDS: PLAVIX PO SCH (09:29)
[2019-08-28] MEDS: LASIX PO SCH (09:29)
[2019-08-28] MEDS: COZAAR PO SCH (09:30)
[2019-08-28] MEDS: ALDACTONE PO SCH (09:30)
[2019-08-28] MEDS: ASTELIN NASAL SPRAY NAS SCH (09:31)
[2019-08-28] MEDS: FLONASE NAS SCH (09:31)
[2019-08-28] MEDS: KEFZOL 1 GM/D5W 1 GM/50 ML IVPB IV SCH ×3 (09:32→23:58)
[2019-08-28] MEDS: REMERON PO SCH (20:36)
[2019-08-29 05:52] LABS: BASO# 0.05 X1000 (0.0-0.2); BASO% 0.5 % (0.0-0.8); EOS# 0.08 X1000 (0.0-0.7); EOS% 0.9 % (0.0-10.0); HEMATOCRIT 40.8 % (37.0-47.0); HEMOGLOBIN 12.9 g/dL (12.0-16.0); IMM GRAN# 0.05 X1000 (0.0-0.04); IMM GRAN% 0.5 % (0.0-0.5); LYMPH# 1.49 X1000 (1.2-3.4); LYMPH% 16.1 % (20.5-51.1); MCHC 31.6 g/dL (33-37); MCV 88.7 FL (81-99); MONO# 1.26 X1000 (0.11-0.59); MONO% 13.7 % (1.7-9.3); MPV 9.1 FL (7.4-10.4); NEUT% 68.3 % (42.2-75.2); PLT 388 X1000 (130-400); RDW 13.7 % (11.5-14.5); WBC 9.23 X1000 (4.8-10.8)
[2019-08-29] MEDS: D5 1/2 NS + KCL 20 MEQ 1,000 ML IV SCH ×2 (05:57→15:55)
[2019-08-29] MEDS: SYNTHROID PO SCH ×2 (05:57→07:29)
[2019-08-29 06:08] LABS: CALCIUM 8.3 mg/dL (8.8-10.2); CREATININE 1.1 mg/dL (0.5-0.9); POTASSIUM 4.7 mmol/L (3.5-5.1)
[2019-08-29] MEDS: PHENERGAN IV PRN ×4 (06:28→21:25)
[2019-08-29] MEDS: MORPHINE IV PRN ×5 (06:28→21:26)
[2019-08-29] MEDS: KEFZOL 1 GM/D5W 1 GM/50 ML IVPB IV SCH ×2 (08:16→15:56)
[2019-08-29] MEDS: ALDACTONE PO SCH (08:18)
[2019-08-29] MEDS: PLAVIX PO SCH (08:18)
[2019-08-29] MEDS: TOPROL XL PO SCH (08:19)
[2019-08-29] MEDS: LASIX PO SCH (08:19)
[2019-08-29] MEDS: COZAAR PO SCH (08:20)
[2019-08-29] MEDS: FLONASE NAS SCH (08:21)
[2019-08-29] MEDS: ASTELIN NASAL SPRAY NAS SCH (08:21)
[2019-08-29] MEDS: SODIUM CHLORIDE 0.9% INJ PRN (15:53)
[2019-08-29] MEDS: REMERON PO SCH (21:25)
[2019-08-30] MEDS: D5 1/2 NS + KCL 20 MEQ 1,000 ML IV SCH ×4 (00:59→23:48)
[2019-08-30] MEDS: KEFZOL 1 GM/D5W 1 GM/50 ML IVPB IV SCH ×4 (00:59→23:49)
[2019-08-30] MEDS: MORPHINE IV PRN ×6 (01:07→23:59)
[2019-08-30] MEDS: PHENERGAN IV PRN ×4 (01:07→23:59)
[2019-08-30] MEDS: SYNTHROID PO SCH (06:24)
[2019-08-30] MEDS: LASIX PO SCH (08:34)
[2019-08-30] MEDS: PLAVIX PO SCH (08:35)
[2019-08-30] MEDS: COZAAR PO SCH (08:35)
[2019-08-30] MEDS: TOPROL XL PO SCH (08:35)
[2019-08-30] MEDS: FLONASE NAS SCH (08:36)
[2019-08-30] MEDS: ASTELIN NASAL SPRAY NAS SCH (08:36)
[2019-08-30] MEDS: ALDACTONE PO SCH (08:42)
[2019-08-30] MEDS: ZOFRAN PO PRN ×2 (08:50→14:36)
[2019-08-30] MEDS: SODIUM CHLORIDE 0.9% INJ PRN ×3 (12:01→23:59)
[2019-08-30] MEDS: REMERON PO SCH (22:15)
[2019-08-31] MEDS: SYNTHROID PO SCH (06:51)
[2019-08-31] MEDS: KEFZOL 1 GM/D5W 1 GM/50 ML IVPB IV SCH ×3 (08:54→23:45)
[2019-08-31] MEDS: ZOFRAN PO PRN ×2 (08:54→11:21)
[2019-08-31] MEDS: COZAAR PO SCH (08:55)
[2019-08-31] MEDS: LASIX PO SCH (08:55)
[2019-08-31] MEDS: ALDACTONE PO SCH (08:57)
[2019-08-31] MEDS: PLAVIX PO SCH (08:57)
[2019-08-31] MEDS: TOPROL XL PO SCH (08:57)
[2019-08-31] MEDS: ASTELIN NASAL SPRAY NAS SCH (08:58)
[2019-08-31] MEDS: FLONASE NAS SCH (08:58)
[2019-08-31] MEDS: IMODIUM PO PRN ×3 (09:00→21:01)
[2019-08-31] MEDS: D5 1/2 NS + KCL 20 MEQ 1,000 ML IV SCH ×2 (11:26→23:45)
[2019-08-31] MEDS: MORPHINE IV PRN ×4 (11:29→21:00)
[2019-08-31] MEDS: REMERON PO SCH (20:50)
[2019-08-31] MEDS: SODIUM CHLORIDE 0.9% INJ PRN (21:01)
[2019-08-31] MEDS: PHENERGAN IV PRN (21:01)
[2019-09-01] MEDS: SYNTHROID PO SCH (07:57)
[2019-09-01] MEDS: COZAAR PO SCH (08:43)
[2019-09-01] MEDS: LASIX PO SCH (08:43)
[2019-09-01] MEDS: TOPROL XL PO SCH (08:43)
[2019-09-01] MEDS: PLAVIX PO SCH (08:44)
[2019-09-01] MEDS: KEFZOL 1 GM/D5W 1 GM/50 ML IVPB IV SCH ×2 (08:44→16:15)
[2019-09-01] MEDS: ASTELIN NASAL SPRAY NAS SCH (08:44)
[2019-09-01] MEDS: FLONASE NAS SCH (08:44)
[2019-09-01] MEDS: ALDACTONE PO SCH (08:44)
[2019-09-01] MEDS: D5 1/2 NS + KCL 20 MEQ 1,000 ML IV SCH (10:29)
[2019-09-01] MEDS: PHENERGAN IV PRN ×3 (12:27→22:05)
[2019-09-01] MEDS: MORPHINE IV PRN ×3 (12:28→22:06)
[2019-09-01] MEDS: SODIUM CHLORIDE 0.9% INJ PRN ×3 (12:29→22:26)
[2019-09-01] MEDS: REMERON PO SCH (21:44)
[2019-09-01] MEDS: IMODIUM PO PRN (22:05)
[2019-09-02] MEDS: KEFZOL 1 GM/D5W 1 GM/50 ML IVPB IV SCH ×3 (00:17→19:04)
[2019-09-02] MEDS: D5 1/2 NS + KCL 20 MEQ 1,000 ML IV SCH ×5 (01:34→23:51)
[2019-09-02] MEDS: SYNTHROID PO SCH ×2 (05:33→06:46)
[2019-09-02] MEDS: COZAAR PO SCH (08:20)
[2019-09-02] MEDS: TOPROL XL PO SCH (08:21)
[2019-09-02] MEDS: ALDACTONE PO SCH (08:21)
[2019-09-02] MEDS: PLAVIX PO SCH (08:22)
[2019-09-02] MEDS: PHENERGAN IV PRN ×3 (11:38→23:43)
[2019-09-02] MEDS: MORPHINE IV PRN ×3 (11:38→23:43)
[2019-09-02] MEDS: FLONASE NAS SCH (11:39)
[2019-09-02] MEDS: SODIUM CHLORIDE 0.9% INJ PRN ×2 (11:39→19:17)
[2019-09-02] MEDS: ASTELIN NASAL SPRAY NAS SCH (11:40)
[2019-09-02] MEDS: LASIX PO SCH (19:04)
[2019-09-02] MEDS: REMERON PO SCH (21:42)
[2019-09-03] MEDS: KEFZOL 1 GM/D5W 1 GM/50 ML IVPB IV SCH ×2 (01:20→10:01)
[2019-09-03] MEDS: SYNTHROID PO SCH ×2 (05:27→07:43)
[2019-09-03 06:59] LABS: BASO# 0.05 X1000 (0.0-0.2); BASO% 0.7 % (0.0-0.8); EOS# 0.14 X1000 (0.0-0.7); EOS% 1.8 % (0.0-10.0); HEMATOCRIT 36.4 % (37.0-47.0); HEMOGLOBIN 11.6 g/dL (12.0-16.0); LYMPH# 1.47 X1000 (1.2-3.4); LYMPH% 19.4 % (20.5-51.1); MCH 28.9 PG (27-31); MCHC 31.9 g/dL (33-37); MCV 90.8 FL (81-99); MONO# 0.93 X1000 (0.11-0.59); MONO% 12.3 % (1.7-9.3); MPV 8.9 FL (7.4-10.4); NEUT% 65.8 % (42.2-75.2); PLT 330 X1000 (130-400); RBC 4.01 XMIL (4.2-5.4); RDW 13.9 % (11.5-14.5); WBC 7.59 X1000 (4.8-10.8)
[2019-09-03 07:24] LABS: ESTIMATED GFR 43
[2019-09-03 07:32] LABS: AGAP 11; ALB/GLOB RATIO 1.1; ALBUMIN 3.2 g/dL (3.5-5.0); ALKALINE PHOSPHATASE 90 U/L (32-104); BUN 10 mg/dL (8-22); CALCIUM 8.8 mg/dL (8.8-10.2); CHLORIDE 100 mmol/L (98-107); COSMO 265; CREATININE 1.2 mg/dL (0.5-0.9); GLUCOSE 120 mg/dL (70-104); GOT 11 U/L (10-30); GPT < 5 U/L (10-36); POTASSIUM 4.9 mmol/L (3.5-5.1); SODIUM 132 mmol/L (136-145); TCO2 21 mmol/L (25-35); TOTAL BILIRUBIN 0.26 mg/dL (0.20-1.00)
[2019-09-03] MEDS: D5 1/2 NS + KCL 20 MEQ 1,000 ML IV SCH ×2 (07:43→10:01)
[2019-09-03] MEDS: COZAAR PO SCH (10:02)
[2019-09-03] MEDS: PLAVIX PO SCH (10:02)
[2019-09-03] MEDS: TOPROL XL PO SCH (10:02)
[2019-09-03] MEDS: ALDACTONE PO SCH (10:03)
[2019-09-03] MEDS: FLONASE NAS SCH (10:03)
[2019-09-03] MEDS: LASIX PO SCH (10:04)
[2019-09-03] MEDS: ASTELIN NASAL SPRAY NAS SCH (10:08)
[2019-09-03 11:49] VITALS: BP 180/67
[2019-09-03] MEDS: MORPHINE IV PRN (12:08)
[2019-09-03] MEDS: PHENERGAN IV PRN (12:08)
--- NOTE | 2019-09-15 12:13 | DISCHARGE SUMMARY ---
ADMISSION DATE: 08/24/2019 DISCHARGE DATE: 09/03/2019 DIAGNOSIS: Partial bowel obstruction. PROCEDURE: Conservative therapy. HISTORY: The patient is an 83-year-old female known to me for many years. She has had multiple previous operations for bowel obstruction and cholecystectomy. She had an appendectomy years ago by Dr. Nieto eventually requiring a right colectomy with ileotransverse colostomy. 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 She is admitted today with dehydration, intractable nausea and vomiting, and chronic renal failure. She was admitted for hydration, pain and nausea control. Hospitalization was largely uneventful. She did undergo a small bowel follow-through with Gastrografin that revealed somewhat delayed flow, but no obstruction. Eventually, she did recover enough and dietary advancements were well tolerated. No TPN was initiated. The patient does not wish to have any more surgery. At the time when she was eating solid food, she was eventually allowed home with home health. She will be seen in the office on a p.r.n. basis. cc: Samm Tejada MD
== END 2019-09-03 12:42 | disposition home health service (06) | DRG 641 ==
LOC: 4N 04:10
PROVIDERS: ADMIT Surgery; ATTEND Surgery